=== PATIENT | female | born 1940 | race Caucasian/White ===

== ENCOUNTER 2018-03-30 15:15 | Outpatient (CLI) | payer MEDICARE, OTHER ==
[2016-08-03 17:54] VITALS: O2SAT 95
== END 2018-03-30 15:16 | disposition home or self-care (01) | DRG 594 ==
LOC: CONVCARE 15:15
PROVIDERS: ATTEND Orthopaedic Surgery
DX: L98.499 Non-pressure chronic ulcer of skin of other sites with unspecified severity (principal)
CPT/HCPCS: 73140

== ENCOUNTER 2018-04-20 06:58 | Day surgery (SDC) | payer MEDICARE, OTHER ==
[2018-04-20 07:18] VITALS: RESP 16
[2018-04-20] MEDS ORDERED: MIDAZOLAM 2 MG/2 ML SOL ONE (07:30)
[2018-04-20] MEDS ORDERED: PROPOFOL 500 MG/50 ML EMU IV ONE (07:30)
[2018-04-20] MEDS ORDERED: FENTANYL 100MCG/2ML SOL ONE (07:31)
[2018-04-20] MEDS ORDERED: CLINDAMYCIN 150 MG/ML SOL ONE (08:11)
[2018-04-20] MEDS: BUPIVACAINE HCL 0.5% MPF 10 ML SOL ONE ×2 (08:31→08:43)
[2018-04-20] MEDS: LIDOCAINE HCL 2% MPF 10 ML SOL ONE ×2 (08:31→08:43)
[2018-04-20] MEDS ORDERED: KETOROLAC TROMETHAMINE 30 MG/ML SOL ONE (09:34)
[2018-04-20 10:43] VITALS: O2SAT 98
[2018-04-20 11:01] VITALS: BP 133/70; PULSE 62
[2018-04-20 11:14] VITALS: TEMP 97.1
== END 2018-04-20 10:15 | disposition home or self-care (01) | DRG 556 ==
LOC: SURG 06:58
PROVIDERS: ATTEND Orthopaedic Surgery
DX: M79.645 Pain in left finger(s) (principal); B99.9 Unspecified infectious disease
CPT/HCPCS: 76000; J1885; J2250; J3010; J3490; A6402; J2704